=== PATIENT | male | born 1980 ===

== ENCOUNTER 2018-06-14 17:30 | Emergency (ER) | payer SELFPAY ==
[~2018-06-14] VITALS: Ht 182.9 cm; Wt 81.6 kg
[2018-06-14 17:30] VITALS: BP 145/95; Ht 182.9 cm; Wt 81.6 kg
[2018-06-14 17:49] LABS: BASOPHIL % 0.6 % (0-2); PLATELET COUNT 209 x10^3mcL (130-400); RED CELL DISTRIBUTION WIDTH 13.1 % (11.5-14.5)
[2018-06-14 18:22] LABS: CALCIUM 8.4 mg/dL (8.5-10.1); CHLORIDE SERUM 104 mmol/L (98-107); CREATININE SERUM 1.1 mg/dL (0.7-1.3); GFR1 > 60 mL/min; GLUCOSE SERUM 135 mg/dL (74-106); POTASSIUM SERUM 3.3 mmol/L (3.5-5.1); SODIUM SERUM 139 mmol/L (136-145)
[2018-06-14 18:26] LABS: ALBUMIN 3.6 g/dL (3.4-5.0); ALKALINE PHOSPHATASE 83 U/L (46-116); ALT/SGPT 36 U/L (16-63); AST/SGOT 25 U/L (15-37); BILIRUBIN TOTAL 0.42 mg/dL (0.20-1.00); TOTAL PROTEIN, SERUM 7.3 g/dL (6.4-8.2)
== END 2018-06-14 18:12 | disposition left against medical advice (07) ==
LOC: ED 17:30
PROVIDERS: Emergency Medicine
DX: R07.2 Precordial pain (principal); F15.10 Other stimulant abuse, uncomplicated; R10.13 Epigastric pain; I10 Essential (primary) hypertension
CPT/HCPCS: 36415; 83880; C9113; J1885; J2060